=== PATIENT | female | born 1985 | race Two or more races ===

== ENCOUNTER → 2020-11-23 | Outpatient (CLI) | payer OTHER ==
[2019-11-24 12:46] VITALS: BP 116/78
[~2020-11-23] MED LIST: DOCU-153 PO; FERR325T72 PO; IBUP-1027 PO; METF500T PO; OXYC1TAB15 PO
[2020-11-23 10:08] LABS: BASO % 0 % (0-3); EOS # 0.1 x10^3/uL (0.0-0.7); EOS % 1 % (0-3); HEMATOCRIT 36.5 % (36.0-47.0); HEMOGLOBIN 12.5 g/dL (12.0-15.5); LYMPH # 1.7 x10^3/uL (1.0-4.8); LYMPH % 19 % (24-48); MEAN CORPUSCULAR HEMOGLOBIN 30 pg (25-35); MEAN CORPUSCULAR HGB CONC 34 g/dL (31-37); MEAN CORPUSCULAR VOLUME 87 fL (79-100); MONO # 0.5 x10^3/uL (0.0-1.1); MONO % 6 % (0-9); NEUT # 6.5 x10^3/uL (1.8-7.7); NEUT % 74 % (31-73); PLATELET COUNT 207 x10^3/uL (140-400); RED BLOOD COUNT 4.21 x10^6/uL (3.50-5.40); RED CELL DISTRIBUTION WIDTH 13.2 % (11.5-14.5); WHITE BLOOD COUNT 8.8 x10^3/uL (4.0-11.0)
== END ==
LOC: LAB 09:34
PROVIDERS: ATTEND Obstetrics & Gynecology
DX: Z32.01 Encounter for pregnancy test, result positive (principal); O34.219 Maternal care for unspecified type scar from previous cesarean delivery
CPT/HCPCS: 36415; 85025; 86592; 86703; 86762; 86850; 86900; 86901; 87340

== ENCOUNTER → 2020-12-19 | Outpatient (CLI) | payer OTHER ==
[2019-11-24 12:46] VITALS: BP 116/78
--- NOTE | 2020-12-19 12:52 | RAD ---
EXAM: Ultrasound OB Greater than 14 weeks INDICATION: Reason: Size of Fetus Inconsistent with Dates in 2nd Trimester / Spl. Instructions: / Hi story: TECHNIQUE: Real-time obstetrical ultrasound was performed with permanent freeze-frame documentation. COMPARISON: None. FINDINGS: POSITION: Cephalic HEART RATE: 144 bpm ESTEPHANIA: 11.2 cm PLACENTA: Anterior CERVICAL LENGTH: 5.1 cm MATERNAL UTERUS: Unremarkable. MATERNAL ADNEXA: Unremarkable. AGE/DATES: Gestational Age by LMP: Unsure Gestation Age by US: 26 weeks 1 day EDC by LMP: Unsure EDC by US: 03/26/2021 WEIGHT: 895 grams +/- 132 grams PERCENTILE WEIGHT: Not estimated. BIOMETRIC PARAMETERS: BPD: 6.5 cm corresponding with 26 weeks 2 days HC: 24.0 cm corresponding with 26 weeks 0 days AC: 21.7 cm corresponding with 26 weeks 1 day FL: 4.8 cm corresponding with 26 weeks 1 day ANATOMY: CARDIAC: Normal four chamber heart. Normal right and left ventricular outflow tracts. UMBILICAL CORD: Normal 3 vessel cord. Normal cord insertion. BRAIN: Unremarkable. NOSE/LIPS: Not well seen. SPINE: Unremarkable. EXTREMITIES: Unremarkable. STOMACH: Unremarkable. KIDNEYS: Unremarkable. BLADDER: Unremarkable. IMPRESSION: Normal OB ultrasound demonstrating a single viable fetus in cephalic position. Estimated gestational age of 26 weeks 1 day and EDC of 03/26/2021. Electronically signed by: Hawa Marquez MD (12/19/2020 12:49 PM) [id number]
== END ==
LOC: US 10:42
PROVIDERS: ATTEND Obstetrics & Gynecology
DX: O26.842 Uterine size-date discrepancy, second trimester (principal); O34.219 Maternal care for unspecified type scar from previous cesarean delivery; Z32.01 Encounter for pregnancy test, result positive; Z3A.26 26 weeks gestation of pregnancy
CPT/HCPCS: 76805

== ENCOUNTER 2021-03-06 14:48 | Observation (INO) | payer OTHER ==
[2021-03-06] MEDS ORDERED: IV RINGERS,LACTATED 1000ML 1,000 ML IV PRN (15:15)
[2021-03-06 15:33] LABS: BILIRUBIN,URINE NEGATIVE (NEG); CLARITY,URINE CLEAR; COLOR,URINE YELLOW; NITRITE,URINE NEGATIVE (NEG); PH,URINE 6.5 (<5.0-8.0); PROTEIN,URINE NEGATIVE (NEG-TRACE); UROBILINOGEN,URINE 0.2 mg/dL (0.2 mg/dL)
[2021-03-06 15:39] LABS: BACTERIA,URINE FEW /HPF (0-FEW); RBC,URINE 0 /HPF (0-2)
[2021-03-06 15:40] LABS: WBC,URINE OCC /HPF (0-4)
[2021-03-06 15:55] VITALS: BP 109/75
== END 2021-03-06 17:45 | disposition home or self-care (01) ==
LOC: 3 SO LND 14:48
PROVIDERS: ADMIT Obstetrics & Gynecology; ATTEND Obstetrics & Gynecology
DX: O62.9 Abnormality of forces of labor, unspecified (principal); Z3A.37 37 weeks gestation of pregnancy
CPT/HCPCS: 59025; 81001; 96360; 96361; G0378; G0379; J7120